=== PATIENT | female | born 1975 | race Caucasian/White ===

== ENCOUNTER 2017-09-09 06:50 | Emergency (ER) | payer OTHER ==
[~2017-09-09] VITALS: Ht 167.6 cm; Wt 104.3 kg
[~2017-09-09 06:50] MED LIST: AMLO5TAB7 PO; METO25TA14 PO
--- NOTE | 2017-09-09 07:15 | NUR ---
Patient ambulated to bed 09.
[2017-09-09 07:18] VITALS: BP 141/89
--- NOTE | 2017-09-09 07:20 | NUR ---
42/F BIB SELF C/O LOWER ABDOMINAL PAIN RADIATES TO LOWER BACK X THIS AM. DENIES N/V/D; SKIN IS PINK/WARM/DRY; AAOX4 WITH EVEN AND STEADY GAIT; LUNGS CLEAR BL; HR EVEN AND REGULAR; PATIENT STATES PAIN OF 7/10 AT THIS TIME; VSS; PATIENT POSITIONED FOR COMFORT; HOB ELEVATED; BEDRAILS UP X2; BED DOWN. ER MD MADE AWARE OF PT STATUS.
--- NOTE | 2017-09-09 07:30 | NUR ---
Patient being evaluated by DR MAX at bedside.
--- NOTE | 2017-09-09 07:47 | NUR ---
US AT BEDSIDE.
[2017-09-09 07:52] LABS: HEMATOCRIT 40.7 % (36-48); HEMOGLOBIN 13.6 g/dL (12.0-16.0); MEAN CORPUSCULAR HEMOGLOBIN 30 pg (27-31); MEAN CORPUSCULAR HGB CONC 34 g/dL (33-37); MEAN CORPUSCULAR VOLUME 89 fL (80-94); PLATELET COUNT (AUTO) 238 K/uL (140-450); RED BLOOD CELL COUNT(AUTO) 4.57 MIL/uL (4.20-5.40); WHITE BLOOD COUNT (AUTO) 10.1 K/uL (4.8-10.8)
[2017-09-09 07:54] LABS: APPEARANCE,URINE SL CLOUDY (CLEAR); BILIRUBIN,URINE NEGATIVE (NEGATIVE); BLOOD, URINE 3+ (NEGATIVE); COLOR,URINE YELLOW (YELLOW); LEUKOCYTE ESTERASE ,URINE NEGATIVE (NEGATIVE); NITRITE, URINE NEGATIVE (NEGATIVE); UGLUCOSE NEGATIVE (NEGATIVE)
[2017-09-09 08:09] LABS: ALBUMIN 3.6 g/dL (3.4-5.0); ANION GAP 10.7 (8-16); CREATININE 0.9 mg/dL (0.6-1.3); POTASSIUM 3.7 mmol/L (3.5-5.1); TOTAL BILIRUBIN 0.9 mg/dL (0.0-1.0)
[2017-09-09 08:34] LABS: RBC,URINE >100 /HPF (0-5)
[2017-09-09 08:35] LABS: WBC,URINE 0-5 (RARE) /HPF (0-5)
[2017-09-09 08:37] LABS: LYMPHOCYTES % (MANUAL) 18 % (20-46)
[2017-09-09 08:38] LABS: EOSINOPHILS % (MANUAL) 2 % (0-4); MONOCYTES % (MANUAL) 3 % (5-12)
[2017-09-09 09:00] VITALS: BP 128/84
--- NOTE | 2017-09-09 09:00 | NUR ---
Patient discharged with v/s stable. Written and verbal after care instructions given and explained. Patient verbalized understanding. Ambulatory with steady gait. All questions addressed prior to discharge. Advised to follow up with PMD.
== END 2017-09-09 09:00 | disposition home or self-care (01) ==
LOC: MED 06:50
DX: T62.91XA Toxic effect of unspecified noxious substance eaten as food, accidental (unintentional), initial encounter (principal); Y92.89 Other specified places as the place of occurrence of the external cause; Z88.1 Allergy status to other antibiotic agents; I10 Essential (primary) hypertension
CPT/HCPCS: 36415; 76700; 80053; 81001; 81025; 83690; 85025; 99285; Q0092

== ENCOUNTER 2017-10-13 03:25 | Emergency (ER) | payer OTHER ==
[~2017-10-13] VITALS: Ht 167.6 cm; Wt 106.6 kg
[2017-10-13 03:38] VITALS: BP 152/95
--- NOTE | 2017-10-13 03:55 | NUR ---
AMBULATED TO ER BED 7
--- NOTE | 2017-10-13 03:57 | NUR ---
Patient being evaluated by physician at bedside.
--- NOTE | 2017-10-13 04:00 | NUR ---
PATIENT IS A 42 Y/O FEMALE WHO PRESENTS TO THE ED C/O ABD PAIN. PT STATES, "MY STOMACH HASN'T BEEN FEELING WELL." PT REPORTS 9/10 PRESSURE PAIN ON THE LOWER ABD THAT RADIATES TO THE BACK. PT DENIES CP, SOB, N/V/D. PT AAOX4, RR EVEN/UNLABORED. PT REPOSITIONED FOR COMFORT, BED IN LOWEST POSITION. ER MD DR. SAHNI NOTIFIED. WILL CONTINUE TO MONITOR.
[2017-10-13] MEDS ORDERED: cefTRIAXone 2,000 MG in DEXTROSE 5% 100 ML IV ONE (04:05)
[2017-10-13] MEDS ORDERED: NACL 0.9% 1,000 ML IV ONE (04:05)
[2017-10-13] MEDS ORDERED: cefTRIAXone 2,000 MG VIAL ONE (04:17)
[2017-10-13] MEDS ORDERED: MORPHINE SULFATE 4 MG/ML SYR IVP ONE (04:30)
[2017-10-13 05:07] LABS: HEMATOCRIT 40.7 % (36-48); HEMOGLOBIN 13.5 g/dL (12.0-16.0); MEAN CORPUSCULAR HEMOGLOBIN 30 pg (27-31); MEAN CORPUSCULAR HGB CONC 33 g/dL (33-37); MEAN CORPUSCULAR VOLUME 89 fL (80-94); PLATELET COUNT (AUTO) 233 K/uL (140-450); RED BLOOD CELL COUNT(AUTO) 4.58 MIL/uL (4.20-5.40); RED CELL DISTRIBUTION WIDTH 13.1 % (11.6-13.7); WHITE BLOOD COUNT (AUTO) 8.6 K/uL (4.8-10.8)
[2017-10-13 05:16] LABS: APPEARANCE,URINE CLEAR (CLEAR); BILIRUBIN,URINE NEGATIVE (NEGATIVE); BLOOD, URINE 3+ (NEGATIVE); COLOR,URINE YELLOW (YELLOW); LEUKOCYTE ESTERASE ,URINE NEGATIVE (NEGATIVE); NITRITE, URINE NEGATIVE (NEGATIVE); PH,URINE 6.5 (5.0-9.0); UGLUCOSE NEGATIVE (NEGATIVE)
[2017-10-13 05:25] LABS: ALBUMIN 3.3 g/dL (3.4-5.0); ANION GAP 13.8 (8-16); CARBON DIOXIDE 25.9 mmol/L (21-32); CREATININE 0.8 mg/dL (0.6-1.3); POTASSIUM 3.7 mmol/L (3.5-5.1); TOTAL BILIRUBIN 0.8 mg/dL (0.0-1.0)
[2017-10-13 05:26] LABS: LYMPHOCYTES % (MANUAL) 26 % (20-46); MONOCYTES % (MANUAL) 7 % (5-12)
[2017-10-13 05:28] LABS: WBC,URINE 0-5 (RARE) /HPF (0-5)
[2017-10-13 05:29] LABS: RBC,URINE 80-100 /HPF (0-5)
--- NOTE | 2017-10-13 06:40 | NUR ---
IV removed, catheter intact and site benign. Applied folded 4x4 gauze and tape to stop bleeding.
[2017-10-13 06:41] VITALS: BP 147/89
--- NOTE | 2017-10-13 06:41 | NUR ---
Patient discharged with v/s stable. Written and verbal after care instructions given and explained. Patient alert, oriented and verbalized understanding of instructions. Ambulatory with steady gait. All questions addressed prior to discharge. ID band removed. Patient advised to follow up with PMD. Rx of PYRIDIUM 200MG given. Patient educated on indication of medication including possible reaction and side effects. Opportunity to ask questions provided and answered.
== END 2017-10-13 06:41 | disposition home or self-care (01) ==
LOC: MED 03:25
DX: N39.0 Urinary tract infection, site not specified (principal); N12 Tubulo-interstitial nephritis, not specified as acute or chronic; I10 Essential (primary) hypertension; Z88.1 Allergy status to other antibiotic agents
CPT/HCPCS: 36415; 80053; 81001; 81025; 82150; 83690; 85025; 96365; 96375; 99284; J0696; J2270; J7030; J7060

== ENCOUNTER 2021-09-22 22:12 | Emergency (ER) | payer OTHER ==
[~2021-09-22] VITALS: Ht 167.6 cm; Wt 113.4 kg
[2021-09-22 22:22] VITALS: BP 141/87
--- NOTE | 2021-09-22 22:56 | NUR ---
MOVED TO CHAIR C AT THIS TIME, REPORTS LEFT FLANK PAIN RADIATING TO ABDOMEN ONSET TUESDAY. REPORTS NAUSEA WITH NO VOMITING. DENIES CHEST PAIN OR SOB. BACK PAIN WORSE WITH MOVEMENT. NO COVID VACCINES. PMHX ENDOMETRIOSIS, FIBROIDS, POLYPS IN THE COLON, HTN ALLERGY TO TETRACYCLINE.
[2021-09-22] MEDS ORDERED: KETOROLAC 60 MG/2 ML VIAL IM ONE (23:05)
--- NOTE | 2021-09-22 23:39 | NUR ---
MOVED TO BED 11
[2021-09-22] MEDS ORDERED: NACL 0.9% 1,000 ML IV ONE (23:40)
[2021-09-22] MEDS ORDERED: MORPHINE SULFATE 4 MG/ML SYR IVP ONE (23:40)
[2021-09-23 00:14] LABS: APPEARANCE,URINE CLEAR (CLEAR); BILIRUBIN,URINE NEGATIVE (NEGATIVE); BLOOD, URINE 3+ (NEGATIVE); COLOR,URINE YELLOW (YELLOW); LEUKOCYTE ESTERASE ,URINE NEGATIVE (NEGATIVE); NITRITE, URINE NEGATIVE (NEGATIVE); PH,URINE 5.5 (5.0-9.0); UGLUCOSE NEGATIVE (NEGATIVE)
[2021-09-23 00:29] LABS: RBC,URINE TOO NUMEROUS TO COUN /HPF (0-5); WBC,URINE 0-5 /HPF (0-5)
--- NOTE | 2021-09-23 00:53 | NUR ---
PER LAB CBC CMP 10 MIN ETA
[2021-09-23 01:04] LABS: ALBUMIN 3.8 g/dL (3.4-5.0); ANION GAP 15.3 (8-16); CARBON DIOXIDE 26.5 mmol/L (21-32); CREATININE 1.5 mg/dL (0.6-1.3); POTASSIUM 3.8 mmol/L (3.5-5.1); TOTAL BILIRUBIN 1.1 mg/dL (0.0-1.0)
[2021-09-23 01:19] LABS: BASOPHILS % (AUTO) 0.3 % (0.0-2.0); HEMATOCRIT 33.7 % (36-48); HEMOGLOBIN 10.9 g/dL (12.0-16.0); LYMPHOCYTES # (AUTO) 1.2 K/uL (2.5-16.5); LYMPHOCYTES % (AUTO) 10.3 % (20.5-51.1); MEAN CORPUSCULAR HEMOGLOBIN 27 pg (27-31); MEAN CORPUSCULAR HGB CONC 32 g/dL (33-37); MEAN CORPUSCULAR VOLUME 82.1 fL (80-94); MONOCYTES # (AUTO) 0.8 K/uL (0.8-1.0); MONOCYTES % (AUTO) 6.3 % (1.7-9.3); NEUTROPHILS % (AUTO) 83.1 % (42.2-75.2); PLATELET COUNT (AUTO) 301 K/uL (140-450); RED CELL DISTRIBUTION WIDTH 14.1 % (11.6-13.7)
[2021-09-23] MEDS ORDERED: NAPR-54 PO (01:44)
[2021-09-23 01:52] VITALS: BP 126/79
--- NOTE | 2021-09-23 01:52 | NUR ---
DR SAHNI AT BEDSIDE FOR DISCHARGE TEACHING, ADVISED TO FOLLOW UP WITH PCP AND RETURN IF CONDITION WORSENS.
== END 2021-09-23 01:52 | disposition home or self-care (01) ==
LOC: MED 22:12
DX: N13.30 Unspecified hydronephrosis (principal); I10 Essential (primary) hypertension; Z88.1 Allergy status to other antibiotic agents
CPT/HCPCS: 36415; 74176; 80053; 81001; 81025; 85025; 96361; 96372; 96374; 99285; J1885; J2270; J7030